=== PATIENT | male | born 1940 | race Caucasian/White ===

== ENCOUNTER 2024-08-07 15:37 | Emergency (ER) | payer MEDICARE, OTHER | END 2024-08-07 17:40 | disposition home or self-care (01) | LOC: JD.ED 15:37 | DX: S00.03XA Contusion of scalp, initial encounter (principal); S09.90XA Unspecified injury of head, initial encounter; R42 Dizziness and giddiness; R07.89 Other chest pain; Z87.891 Personal history of nicotine dependence; W01.198A Fall on same level from slipping, tripping and stumbling with subsequent striking against other object, initial encounter; Y92.009 Unspecified place in unspecified non-institutional (private) residence as the place of occurrence of the external cause | CPT/HCPCS: 70450; 70450-26; 71046; 71046-26; 99283; 99284 ==